=== PATIENT | male | born 1985 | race Caucasian/White ===

== ENCOUNTER 2020-12-02 15:06 | Emergency (ER) | payer OTHER, MEDICAID, SELFPAY ==
[2020-12-02 15:07] VITALS: BP 142/89; PULSE 84; RESP 16; TEMP 36.7; BMI 29.0
--- NOTE | 2020-12-02 15:23 | ED.VIS.GEN ---
History of Present Illness Chief Complaint: Laceration Informant: Patient Narrative: 35-year-old male was cutting wood using a saw and he sustained a skin avulsion to the right thumb by the sawblade. He notes his tetanus is up-to-date. He notes that he has had minimal bleeding. He washed the wound with tap water. Past Medical History - Allergies and Home Meds Allergies/Adverse Reactions: Allergies No Known Allergies Allergy (Verified 12/02/20 15:07) Primary Care Physician: Care Physician,No Primary [Primary Care Provider] - Past Medical History: None Surgical History: noncontributory Smoking Status: Current every day smoker Drugs: None Review of Systems General: Denies: Chills, Fever, Sweats Eyes: Denies: Visual changes - bilaterally, Diplopia ENT: Denies: Rhinorrhea, Sore throat Cardiovascular: Denies: Chest pain, Palpitations Respiratory: Denies: Dyspnea, Cough, Dyspnea on exertion Gastrointestinal: Denies: Abdominal pain, Nausea, Vomiting, Diarrhea, Melena, Hematochezia Genitourinary: Denies: Dysuria, Hematuria, Frequency Musculoskeletal: Denies: Back pain, Extremity Pain Skin: Reports: Wounds. Denies: Rash Neurological: Denies: Headache, Weakness, Numbness Physical Exam Vital Signs/Narrative: Vital Signs Temp Pulse Resp BP 12/02/20 15:07 98.0 F 84 16 142/89 H Inital Vital Signs reviewed: Yes General: Well nourished, Well developed, No Acute Distress Head: Normocephalic, Atraumatic Eyes: Perrl, EOMI ENT: Moist mucous membranes, No rhinorrhea Neck: Supple, Nontender Cardiovascular: Regular rate, Regular rhythm, No murmurs Respiratory: No distress, CTA bilaterally, Chest nontender Abdomen: Soft, Nontender, Nondistended, Normal bowel sounds Back: Nontender, Normal Inspection Extremities: Nontender, No edema Skin: Normal color, No rash, Trauma - There is a 1 cm triangular skin avulsion with minimal bleeding to the right volar lateral thumb. Neurovascular intact Neurological: Alert, Oriented x3, Cranial nerves II-XII grossly intact, Normal Strength, Normal Sensation Psychological: Normal affect, Normal Mood Diagnostic/Tx/Re-eval - Medical Decision Making Wound was cleansed. A small piece of Gelfoam placed and then tube gauze to cover it. He was instructed on local wound care. He was advised this will granulate in. There is nothing that I can so. He is comfortable with this plan. ED Disposition - Plan for ED Patient: Disposition: Home or Assisted Living Diagnosis: Avulsion of skin of finger Instructions: ED Skin Avulsion Additional Instructions: Leave dressing on for 48 hours then remove and give local wound care with antibiotic ointment and keep clean and covered
== END 2020-12-02 15:41 | disposition home or self-care (01) ==
LOC: ED 15:36
PROVIDERS: Emergency Provider Emergency Medicine
DX: S61.011A Laceration without foreign body of right thumb without damage to nail, initial encounter (principal); F17.200 Nicotine dependence, unspecified, uncomplicated; W29.3XXA Contact with powered garden and outdoor hand tools and machinery, initial encounter; Y93.89 Activity, other specified; Y92.89 Other specified places as the place of occurrence of the external cause; Y99.8 Other external cause status
CPT/HCPCS: 99282

== ENCOUNTER → 2022-08-26 | Outpatient (CLI) | payer OTHER, SELFPAY ==
--- NOTE | 2022-08-26 13:13 | MRI_ITS ---
EXAM: MR LEFT UPPER EXTREMITY WITHOUT INTRAVENOUS CONTRAST, SHOULDER CLINICAL INDICATION: SPRAIN OF LEFT SHOULDER TECHNIQUE: Multiplanar and multisequence MR images of the left shoulder without intravenous contrast. This report was created using [employer] report generation technology. COMPARISON: None FINDINGS: TENDONS: SUPRASPINATUS: Focal ill-defined signal abnormality involving the footprint of the supraspinatus tendon may represent a moderate grade partial-thickness tear centered at the interstitial portion but also involving the articular surface. INFRASPINATUS: Unremarkable. No tear of the infraspinatus tendon. SUBSCAPULARIS: Unremarkable. Intact. TERES MINOR: Unremarkable. Intact. BICEPS BRACHII, LONG HEAD: Unremarkable. The extra-articular biceps tendon is in the bicipital groove. The intra-articular biceps tendon is normal. LIGAMENTS: GLENOHUMERAL: Unremarkable. Intact. CORACOACROMIAL: Type II acromion with curved undersurface. No coracoacromial ligament thickening. No os acromiale. No subacromial enthesophyte. MUSCLES: Muscles are normal. No rotator cuff muscle atrophy. FLUID: Small to moderate amount of fluid in the subacromial/subdeltoid bursa is compatible with bursitis. No joint effusion. CARTILAGE: Unremarkable. Articular cartilage intact. GLENOID LABRUM: Unremarkable. Intact, limited evaluation on non-arthrographic exam. BONES/JOINTS: Mild degenerative changes acromioclavicular joint. OTHER SOFT TISSUES: Unremarkable. No rotator interval edema. OTHER FINDINGS: Neurovascular structures are unremarkable. MRI/Upper Ext Joint Only(Routine) IMPRESSION: 1. Focal ill-defined signal abnormality involving the footprint of the supraspinatus tendon may represent a moderate grade partial-thickness tear centered at the interstitial portion but also involving the articular surface. 2. Subacromial/subdeltoid bursitis. Electronically Signed: Arden Dsouza MD at 20:27 EST ,
== END | disposition home or self-care (01) ==
DX: S43.402A Unspecified sprain of left shoulder joint, initial encounter (principal); X58.XXXA Exposure to other specified factors, initial encounter
CPT/HCPCS: 73221